=== PATIENT | female | born 1995 | race American Indian/Alaskan Native ===

== ENCOUNTER 2021-06-12 09:41 | Emergency (ER) | payer SELFPAY ==
[2021-06-12 10:44] VITALS: BP 111/76
[2021-06-12] MEDS ORDERED: IBUPROFEN 600 MG TAB PO ONE (11:48)
[2021-06-12] MEDS ORDERED: ONDANSETRON 4 MG/2 ML INJ IV ONE (12:22)
[2021-06-12] MEDS ORDERED: SODIUM CHLORIDE 0.9% 1000 ML 1,000 ML IV ONE (12:22)
[2021-06-12] MEDS ORDERED: DICYCLOMINE 10 MG/5 ML ORAL LIQD PO ONE (12:23)
[2021-06-12] MEDS ORDERED: KETOROLAC 30 MG/1 ML INJ IV ONE (12:23)
[2021-06-12] MEDS ORDERED: diphenhydrAMINE 50 MG/ML VIAL IV ONE (12:24)
--- NOTE | 2021-06-12 12:26 | Emergency Department Report ---
ED General Adult HPI - General Chief complaint: Headache Stated complaint: HEADACHE, ABD PAIN Time Seen by Provider: 06/12/21 11:01 Source: patient Mode of arrival: Ambulatory Limitations: No Limitations - History of Present Illness Initial comments: 25-year-old -Citizen Of [place] female presents to the emergency room complaining of headache and diarrhea for 4 days. Patient states that this morning she got up and she was lightheaded. She states that she has not been able to eat anything everything she eats causes diarrhea. Patient reports that she took ibuprofen at 830 this morning. Patient admits to photophobia and sounds make her headache worse. She does denies any nausea but admits to an upset stomach more like a sour stomach. Patient has no past medical history currently takes no medications on a daily basis and has an allergy to Darvocet. She currently does not have a primary care provider. States her last bowel movement was this morning. Onset/Timin -: days(s) Location: head, abdomen Severity scale (0 -10): 8 Quality: aching Consistency: constant Improves with: none Worsens with: none Associated Symptoms: loss of appetite. denies: cough, diaphoresis, fever/chills, nausea/vomiting Treatments Prior to Arrival: NSAID - Related Data Allergies Allergy/AdvReac Type Severity Reaction Status Date / Time acetaminophen Allergy Hives Verified 06/12/21 10:41 [From Darvocet-N] propoxyphene Allergy Hives Verified 06/12/21 10:41 [From Darvocet-N] ED Review of Systems ROS: Stated complaint: HEADACHE, ABD PAIN Other details as noted in HPI Comment: All other systems reviewed and negative ED Past Medical Hx - Past Medical History Previous Medical History?: No - Surgical History Past Surgical History?: No - Social History Smoking Status: Never Smoker ED Physical Exam - General Limitations: No Limitations General appearance: alert, other (Looks uncomfortable) - Head Head exam: Present: atraumatic, normocephalic - Eye Eye exam: Present: normal appearance - ENT ENT exam: Present: mucous membranes dry - Respiratory Respiratory exam: Present: normal lung sounds bilaterally. Absent: respiratory distress, chest wall tenderness, accessory muscle use - Cardiovascular Cardiovascular Exam: Present: regular rate - GI/Abdominal GI/Abdominal exam: Present: soft, tenderness, hyperactive bowel sounds. Absent: distended, guarding, rebound - Extremities Exam Extremities exam: Present: normal inspection - Back Exam Back exam: Present: normal inspection - Neurological Exam Neurological exam: Present: alert, oriented X3 - Expanded Neurological Exam Expanded Cranial nerves: EOM's Intact: Normal, Gag Reflex: Normal, Tongue Deviation: Normal, Nystagmus: Normal, Facial Sensation: Normal, Facial Palsy with Forehead Movement: Normal, Facial Palsy without Forehead Movement: Normal Cerebellar function: Finger to Nose: Normal, Heel to [place]: Normal, Romberg: Normal Upper motor neuron: José Luis Neglect: Normal, Pronator Drift: Normal, Babinski Sign: Normal, Sensory Extinction: Normal Sensory exam: Upper Extremity Light Touch: Normal, Upper Extremity Pin Prick: Normal, Upper Extremity Temperature: Normal, UE 2 Point Discrimination: Normal, Lower Extremity Light Touch: Normal, Lower Extremity Pin Prick: Normal, Lower Extremity Temperature: Normal, LE 2 Point Discrimination: Normal Motor strength exam: RUE: 4, LUE: 4, RLE: 4, LLE: 4 Best Eye Response (Lena): (4) open spontaneously Best Motor Response (Lena): (6) obeys commands Best Verbal Response (Cha): (5) oriented Cha Total: 15 - Psychiatric Psychiatric exam: Present: normal affect, normal mood ED Course Vital Signs 06/12/21 10:43 Temperature 98.4 F Pulse Rate 73 Respiratory 16 Rate Blood Pressure 111/76 [Right] O2 Sat by Pulse 100 Oximetry - Reevaluation(s) Reevaluation #1: 06/12/21 14:04 Patient reports she is feels much better she no longer has a headache. Awaiting urine. ED Medical Decision Making - Lab Data Result diagrams: 06/12/21 12:01 06/12/21 12:01 - Medical Decision Making 25-year-old -Citizen Of [place] female presents to the emergency room complaining of headache and diarrhea for 4 days. Patient states that this morning she got up and she was lightheaded. She states that she has not been able to eat anything everything she eats causes diarrhea. Patient reports that she took ibuprofen at 830 this morning. Patient admits to photophobia and sounds make her headache worse. She does denies any nausea but admits to an upset stomach more like a sour stomach. Patient has no past medical history currently takes no medications on a daily basis and has an allergy to Darvocet. She currently does not have a primary care provider. States her last bowel movement was this morning. CBC, CMP urinalysis urine , INT, normal saline, Bentyl 20 mg liquid p.o., Reglan 25 mg IV, 25 mg of Benadryl and 15 mg of Toradol IV. Patient reports that her headache feels much better. Has not had any more loose stools since being here in [facility]. Recommend to increase her fluid intake Lomotil as needed for diarrhea follow-up with her primary care provider. Critical care attestation.: If time is entered above; I have spent that time in minutes in the direct care of this critically ill patient, excluding procedure time. ED Disposition Clinical Impression: Headache, Diarrhea Disposition: - TO HOME OR SELFCARE Is pt being admited?: No Does the pt Need Aspirin: No Condition: Stable Instructions: Diarrhea, Adult, [id number] Additional Instructions: Labs are within normal limits. I recommend increase your fluid intake advance your diet as tolerated. You can try [id number] Lomotil for diarrhea. Tylenol or ibuprofen as needed for headache. Follow-up with your primary care provider. Referrals: PRIMARY CAREMD [Primary Care Provider] - 3-5 Days Forms: Work/School Release Form(ED) Time of Disposition: 16:03
[2021-06-12 12:32] LABS: Basophils % (Auto) 0.2 % (0.0-1.8); Eosinophils # (Auto) 0.1 K/mm3 (0.0-0.4); Eosinophils % (Auto) 1.2 % (0.0-4.3); Hematocrit 41.2 % (30.3-42.9); Lymphocytes # (Auto) 1.4 K/mm3 (1.2-5.4); Lymphocytes % (Auto) 27.2 % (13.4-35.0); Mean Corpuscular HGB Conc 34 % (30-34); Mean Corpuscular Volume 94 fl (79-97); Monocytes # (Auto) 0.4 K/mm3 (0.0-0.8); Monocytes % (Auto) 7.7 % (0.0-7.3); Platelet Count 284 K/mm3 (140-440); Red Blood Count 4.37 M/mm3 (3.65-5.03)
[2021-06-12 12:34] LABS: Alanine Aminotransferase 8 units/L (7-56); Albumin 3.9 g/dL (3.9-5); Blood Urea Nitrogen 8 mg/dL (7-17); Calcium 9.4 mg/dL (8.4-10.2); Hemolysis Index 7
[2021-06-12 12:35] LABS: BUN/Creatinine Ratio 11
[2021-06-12] MEDS ORDERED: HYOSCYAMINE SUBL 0.125 MG TAB SL ONE (12:36)
[2021-06-12 14:25] LABS: Bilirubin,Urine NEG (Negative); Blood,Urine NEG (Negative); Color,Urine Straw (Yellow); Protein,Urine <15 mg/dL mg/dL (Negative); Urobilinogen,Urine < 2.0 mg/dL (<2.0); WBC,Urine < 1.0 /HPF (0.0-6.0)
[2021-06-12 14:56] LABS: HCG Qualitative,Urine Negative (Negative)
== END 2021-06-12 16:19 | disposition home or self-care (01) ==
LOC: ED 09:41
DX: R51.9 Headache, unspecified (principal); R19.7 Diarrhea, unspecified; Z88.6 Allergy status to analgesic agent; Z88.8 Allergy status to other drugs, medicaments and biological substances; Z79.899 Other long term (current) drug therapy
CPT/HCPCS: 36415; 80053; 81001; 81025; 85025; 96374; 96375; 99283; J1200; J1885; J2405; J7030